=== PATIENT | female | born 1960 | race Caucasian/White ===

== ENCOUNTER 2019-10-27 15:51 | Emergency (ER) | payer BC ==
[2019-10-27 16:15] VITALS: BP 153/114; PULSE 83
[2019-10-27] MEDS ORDERED: HYDROmorphone 1 MG/ML Syringe IVPUSH ONE (16:41)
--- NOTE | 2019-10-27 16:42 | EDM.PDOC ---
ED HPI GENERAL MEDICAL PROBLEM - General Chief Complaint: Skin Complaint Stated Complaint: MOUTH SORES (SKIN CANCER) Time Seen by Provider: 10/27/19 16:12 Source of Information: Reports: Patient, RN Notes Reviewed - History of Present Illness INITIAL COMMENTS - FREE TEXT/NARRATIVE: 59 yr old female with severe upper and lower mouth pain. She was given topical medication to treat "cancer of her face" above upper lip by her [facility] Chemist. She started this about 9 or 10 days ago as prescribed. She believes some of this must have come in contact with mucosa upper and lower mouth. She developed painful vesiculation upper and lower moutha few days later that continues. She stopped the prescribed medication a few days ago. Mouth pain has continue to get worse, nothing she is using or trying at home has given much relief. No other area of rash, pain or vesiculation. Bilateral Lip Pain Score (Numeric/FACES): 8 - Related Data Allergies Allergy/AdvReac Type Severity Reaction Status Date / Time sulfanilamide [Sulfanilamide] Allergy Mild Hives Verified 10/27/19 16:14 Home Meds: Home Meds HCTZ/Triamterene [Maxzide 25-37.5 MG] 1 tab PO DAILY 02/08/15 [History] Levothyroxine Sodium 75 mcg PO DAILY 02/08/15 [History] NIFEdipine [Procardia XL] 30 mg PO DAILY 02/08/15 [History] Potassium Chloride 1 tab PO DAILY 02/08/15 [History] Venlafaxine [Effexor] 150 mg PO DAILY 02/08/15 [History] Imiquimod [Aldara 5% Crm] 1 applic TOP BEDTIME 10/27/19 [History] Past Medical History Cardiovascular History: Reports: Hypertension Musculoskeletal History: Reports: Back Pain, Chronic, Fracture, RA, Other (See Below) Other Musculoskeletal History: scoliosis Endocrine/Metabolic History: Reports: Hypothyroidism Oncologic (Cancer) History: Reports: Squamous Cell Carcinoma - Past Surgical History HEENT Surgical History: Reports: Oral Surgery GI Surgical History: Reports: Colon Female Surgical History: Reports: Section, Hysterectomy Neurological Surgical History: Reports: Scoliosis Musculoskeletal Surgical History: Reports: Knee Replacement Social & Family History - Tobacco Use Smoking Status *Q: Never Smoker Second Hand Smoke Exposure: No - Caffeine Use Caffeine Use: Reports: Coffee - Recreational Drug Use Recreational Drug Use: No ED ROS GENERAL - Review of Systems Review Of Systems: See Below Constitutional: Denies: Fever, Chills HEENT: Reports: Other (severe mouth pain) Respiratory: Reports: No Symptoms Cardiovascular: Reports: No Symptoms GI/Abdominal: Denies: Abdominal Pain, Nausea, Vomiting Skin: Denies: Rash Neurological: Reports: No Symptoms ED EXAM, SKIN/RASH Exam: See Below General Appearance: Alert, Moderate Distress Throat/Mouth: Other (extensive vesicultion along mucosal border upper and lower mouth, no intraoral lesions) Head: Other (area of mild swelling and inflamation above upper mid mouth, face other mayer clear) Respiratory/Chest: No Respiratory Distress, Lungs Clear Cardiovascular: Regular Rate, Rhythm Extremities: Normal Inspection, Normal Range of Motion Neurological: Alert, Oriented, No Motor/Sensory Deficits Skin: Warm, Dry, No Rash ( ) Course - Vital Signs Last Recorded V/S: Last Vital Signs Temp 97.4 F 10/27/19 16:10 Pulse 83 10/27/19 16:10 Resp 16 10/27/19 16:10 BP 153/114 H 10/27/19 16:10 Pulse Ox 96 10/27/19 16:10 - Orders/Labs/Meds Meds: Medications Discontinued Medications Generic Name Dose Route Start Last Admin Trade Name Freq PRN Reason Stop Dose Admin Hydromorphone HCl 1 mg 10/27/19 16:51 10/27/19 16:45 Dilaudid IM 10/27/19 16:52 1 mg ONETIME STA Administration Lidocaine HCl 10 ml 10/27/19 17:03 10/27/19 17:10 Xylocaine 2% Jelly MUCMEM 10/27/19 17:04 10 ml ONETIME ONE Administration Departure - Departure Time of Disposition: 16:58 Disposition: Home, Self-Care 01 Clinical Impression: Acute pain of mouth - Discharge Information Instructions: Oral Ulcers Referrals: Claire Szymanski PA-C [Primary Care Provider] - Forms: ED Department Discharge Additional Instructions: You have been given dilaudid 1 mg IM while here in the ED. Do not drive today due to sedative effect. Percocet 1 tab q 6 to 8 hr if needed for severe pain. Viscous lidocaine to area of mouth vesiculation and pain q 4 to 6 hr as needed. Call or see your Dermatogist if this is not healing as expected over the next few days. Sepsis Event Note - Evaluation Sepsis Screening Result: No Definite Risk - Focused Exam Vital Signs: Vital Signs Temp Pulse Resp BP Pulse Ox 10/27/19 16:10 97.4 F 83 16 153/114 H 96 Date Exam was Performed: 10/27/19 Time Exam was Performed: 20:18
[2019-10-27] MEDS ORDERED: HYDROmorphone 1 MG/ML Syringe IM STA (16:51)
[2019-10-27] MEDS ORDERED: Lidocaine 2% Jelly 10 ML Urojet MUCMEM ONE (17:03)
== END 2019-10-27 17:10 | disposition home or self-care (01) ==
LOC: JD.ED 15:51
DX: K13.79 Other lesions of oral mucosa (principal); I10 Essential (primary) hypertension; E03.9 Hypothyroidism, unspecified; Z88.2 Allergy status to sulfonamides; Z79.899 Other long term (current) drug therapy
CPT/HCPCS: 96374; 99283; J1170

== ENCOUNTER 2019-12-13 22:32 | Emergency (ER) | payer BC, OTHER ==
[2019-12-13 22:47] VITALS: BP 154/93; PULSE 105
[2019-12-13] MEDS ORDERED: Ondansetron 4 MG/2 ML SDV IVPUSH ONE (23:05)
[2019-12-13] MEDS ORDERED: HYDROmorphone 0.5 MG/0.5 ML Syringe IVPUSH ONE (23:05)
--- NOTE | 2019-12-13 23:10 | EDM.PDOC ---
ED HPI GENERAL MEDICAL PROBLEM - General Chief Complaint: Lower Extremity Injury/Pain Stated Complaint: hip pain right side Time Seen by Provider: 12/13/19 22:55 Source of Information: Reports: Patient, Family History Limitations: Reports: No Limitations - History of Present Illness INITIAL COMMENTS - FREE TEXT/NARRATIVE: This is a 59-year-old female. On December 02 she had a bone taken from her right iliac crest and placed into the oral cavity. She was told that she would be kind and numb in that area and sore in that area where they took the bone graft. She was walking around today doing some family activities but nothing strenuous when she had sudden onset of severe pain at the incisional site and a large bulge. This is not gotten any better. Any movement causes severe pain. She did not have any nausea and vomiting she denies any fever or chills. She comes to the ER for evaluation. - Related Data Allergies Allergy/AdvReac Type Severity Reaction Status Date / Time sulfanilamide [Sulfanilamide] Allergy Severe Hives Verified 12/13/19 22:47 Home Meds: Home Meds HCTZ/Triamterene [Maxzide 25-37.5 MG] 1 tab PO DAILY 02/08/15 [History] Levothyroxine Sodium 75 mcg PO DAILY 02/08/15 [History] NIFEdipine [Procardia XL] 30 mg PO DAILY 02/08/15 [History] Potassium Chloride 1 tab PO DAILY 02/08/15 [History] Venlafaxine [Effexor] 150 mg PO DAILY 02/08/15 [History] Imiquimod [Aldara 5% Crm] 1 applic TOP BEDTIME 10/27/19 [History] ALPRAZolam [Alprazolam ODT] 0.5 mg PO DAILY 12/13/19 [History] Hydrocodone/Acetaminophen [Hydrocodone-Acetamin 10-325 mg] 1 tab PO DAILY 12/13/19 [History] Ketorolac [Toradol] 10 mg PO DAILY 12/13/19 [History] cephALEXin [Cephalexin] 500 mg PO DAILY 12/13/19 [History] Past Medical History Cardiovascular History: Reports: Heart Murmur, Hypertension Respiratory History: Reports: Pneumonia, Recurrent Musculoskeletal History: Reports: Back Pain, Chronic, Fracture, RA, Other (See Below) Other Musculoskeletal History: scoliosis Endocrine/Metabolic History: Reports: Hypothyroidism Oncologic (Cancer) History: Reports: Squamous Cell Carcinoma - Past Surgical History HEENT Surgical History: Reports: Oral Surgery Other HEENT Surgeries/Procedures: 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 GI Surgical History: Reports: Colon Female Surgical History: Reports: Section, Hysterectomy Neurological Surgical History: Reports: Scoliosis Musculoskeletal Surgical History: Reports: Knee Replacement Social & Family History - Family History Family Medical History: Noncontributory - Tobacco Use Smoking Status *Q: Never Smoker - Caffeine Use Caffeine Use: Reports: Coffee Review of Systems - Review of Systems Review Of Systems: See Below Constitutional: Denies: Chills, Fever Eyes: Reports: No Symptoms Ears: Reports: No Symptoms Nose: Reports: No Symptoms Mouth/Throat: Reports: Other (Recent surgery) Respiratory: Denies: Shortness of Breath, Cough Cardiovascular: Reports: No Symptoms GI/Abdominal: Reports: Abdominal Pain, Other (That is post removal of bone from right iliac crest) Genitourinary: Reports: No Symptoms Musculoskeletal: Reports: No Symptoms Skin: Reports: No Symptoms Neurological: Reports: No Symptoms Psychiatric: Reports: No Symptoms ED EXAM, GENERAL - Physical Exam Exam: See Below Exam Limited By: No Limitations General Appearance: Alert, WD/WN, Mild Distress Eye Exam: Bilateral Eye: Normal Inspection Ears: Normal External Exam Nose: Normal Inspection Throat/Mouth: Normal Lips, Normal Voice, No Airway Compromise, Other (Status post surgery) Head: Normocephalic Neck: Supple Respiratory/Chest: No Respiratory Distress GI/Abdominal: Soft, Other (The incision site there is a large underlying bulge that is very tender on palpation, there is no drainage there is no redness there is no warmth noted, it looks like a hernia developing at the incisional site, with gentle palpation and then with some pressure to try to reduce it I was unable reduce it secondary to the pain ) Back Exam: Full Range of Motion Extremities: Normal Inspection, Normal Range of Motion Neurological: Alert, Oriented, Other (Does have a patch of numbness around the incision site and the anterior thigh on the right) Psychiatric: Anxious Skin Exam: Warm, Dry Course - Vital Signs Last Recorded V/S: Last Vital Signs Temp 98.0 F 12/13/19 22:42 Pulse 105 H 12/13/19 22:42 Resp 20 12/13/19 22:42 BP 154/93 H 12/13/19 22:42 Pulse Ox 99 12/13/19 22:42 - Orders/Labs/Meds Orders: Active Orders 24 hr Category Date Time Status Abdomen Ltd [US] Stat Exams 12/14/19 00:58 Taken Pelvis wo Cont [CT] Stat Exams 12/13/19 23:02 Taken Labs: Laboratory Tests 12/13/19 Range/Units 23:29 WBC 9.31 (3.98-10.04) K/mm3 RBC 4.13 (3.98-5.22) M/mm3 Hgb 12.5 (11.2-15.7) gm/dl Hct 37.9 (34.1-44.9) % MCV 91.8 (79.4-94.8) fl MCH 30.3 (25.6-32.2) pg MCHC 33.0 (32.2-35.5) g/dl RDW Std Deviation 43.6 (36.4-46.3) fL Plt Count 414 H (182-369) K/mm3 MPV 9.6 (9.4-12.3) fl Neut % (Auto) 63.8 (34.0-71.1) % Lymph % (Auto) 24.8 (19.3-51.7) % [place] % (Auto) 8.3 (4.7-12.5) % Eos % (Auto) 2.4 (0.7-5.8) Baso % (Auto) 0.4 (0.1-1.2) % Neut # (Auto) 5.94 (1.56-6.13) K/mm3 Lymph # (Auto) 2.31 (1.18-3.74) K/mm3 [place] # (Auto) 0.77 H (0.24-0.36) K/mm3 Eos # (Auto) 0.22 (0.04-0.36) K/mm3 Baso # (Auto) 0.04 (0.01-0.08) K/mm3 Meds: Medications Discontinued Medications Generic Name Dose Route Start Last Admin Trade Name Freq PRN Reason Stop Dose Admin Hydromorphone HCl 0.5 mg 12/13/19 23:05 12/13/19 23:13 Dilaudid IVPUSH 12/13/19 23:06 0.5 mg ONETIME ONE Administration Hydromorphone HCl 0.5 mg 06/27/20 01:32 12/14/19 01:38 Dilaudid IVPUSH 12/14/19 01:33 0.5 mg ONETIME ONE Administration Ondansetron HCl 4 mg 12/13/19 23:05 12/13/19 23:12 Zofran IVPUSH 12/13/19 23:06 4 mg ONETIME ONE Administration - Radiology Interpretation Free Text/Narrative:: CT scan of the pelvis area shows an irregular hypodense subcutaneous collection of fluid suspicious for an abscess however it could be a hematoma or seroma. They are wanting a sonogram to delineate this. - Re-Assessments/Exams Free Text/Narrative Re-Assessment/Exam: 12/14/19 02:21 The family is very concerned about this bulge underneath the incision. I reassured them that it was probably a hematoma not a hernia or an abscess but they would like to have a surgeon, take a look at it make sure that is what it is. I did call Dr. Mancuso and he is willing to come into the ER to take a look at it and reassured them regarding its appearance. 12/14/19 02:59 Dr. Mancuso came in and talk to the patient and examined the abdomen. He also spoke to V rad regarding the right iliac crest and its appearance. The radiologist thinks that is in normal bone graft site and that the swollen structure appears to be more like a hematoma. Dr. Mancuso spoke to the patient regarding following up with her surgeon this coming week. Taking the easy at home and keeping ice on it for the next 48 hours. If there is any changes such as redness, fever, drainage to return to the ER Departure - Departure Time of Disposition: 03:00 Disposition: Home, Self-Care 01 Condition: Fair Clinical Impression: Right lower quadrant pain, Status post bone graft Hematoma of abdominal wall Qualifiers: Encounter type: initial encounter Qualified Code(s): S30.1XXA - Contusion of abdominal wall, initial encounter - Discharge Information *PRESCRIPTION DRUG MONITORING PROGRAM REVIEWED*: Not Applicable *COPY OF PRESCRIPTION DRUG MONITORING REPORT IN PATIENT MARNIE: Not Applicable Referrals: Lacy Tello RELAY TESTER [Primary Care Provider] - Forms: ED Department Discharge Additional Instructions: If there are any worsening symptoms such as increased redness, swelling, drainage, fever return to the ER over the weekend, otherwise no strenuous activity and limited walking, keep ice to that hematoma on and off for the next 48 hours, after 48 hours you may start using some heat, follow-up with your surgeon with at least a call phone call on Monday regarding the appearance of that incision site, return to the ER if needed Sepsis Event Note (ED) - Evaluation Sepsis Screening Result: No Definite Risk - Focused Exam Vital Signs: Vital Signs Temp Pulse Resp BP Pulse Ox 12/13/19 22:42 98.0 F 105 H 20 154/93 H 99 - My Orders Last 24 Hours: My Active Orders 12/13/19 23:02 Pelvis wo Cont [CT] Stat 12/14/19 00:58 Abdomen Ltd [US] Stat - Assessment/Plan Last 24 Hours: My Active Orders 12/13/19 23:02 Pelvis wo Cont [CT] Stat 12/14/19 00:58 Abdomen Ltd [US] Stat
[2019-12-14] MEDS ORDERED: HYDROmorphone 0.5 MG/0.5 ML Syringe IVPUSH ONE (01:32)
--- NOTE | 2019-12-14 12:44 | PCM.CONS ---
H&P History of Present Illness - General Date of Service: 12/14/19 Admit Problem/Dx: right hip hematoma Source of Information: Patient, Family History Limitations: Reports: No Limitations - History of Present Illness Initial Comments - Free Text/Narative: Mrs. Abbott is a 59 yo woman presenting with RLQ pain and swelling. She underwent palate reconstruction with use of bone autograft from the right iliac crest about one week ago. She had been doing well until yesterday, without any inciting trauma, she developed severe pain and swelling beneath her incision at the RLQ. Her lab work is unremarkable in the ER, and CT and US imaging show a fluid collection beneath the incision consistent with hematoma and a displaced fracture of the right iliac wing. She has been taking oral ketorolac, 30 mg/d, the past few days for post- operative pain. - Related Data Allergies/Adverse Reactions: Allergies Allergy/AdvReac Type Severity Reaction Status Date / Time sulfanilamide [Sulfanilamide] Allergy Severe Hives Verified 12/13/19 22:47 Home Medications: Home Meds HCTZ/Triamterene [Maxzide 25-37.5 MG] 1 tab PO DAILY 02/08/15 [History] Levothyroxine Sodium 75 mcg PO DAILY 02/08/15 [History] NIFEdipine [Procardia XL] 30 mg PO DAILY 02/08/15 [History] Potassium Chloride 1 tab PO DAILY 02/08/15 [History] Venlafaxine [Effexor] 150 mg PO DAILY 02/08/15 [History] Imiquimod [Aldara 5% Crm] 1 applic TOP BEDTIME 10/27/19 [History] ALPRAZolam [Alprazolam ODT] 0.5 mg PO DAILY 12/13/19 [History] Hydrocodone/Acetaminophen [Hydrocodone-Acetamin 10-325 mg] 1 tab PO DAILY 12/13/19 [History] Ketorolac [Toradol] 10 mg PO DAILY 12/13/19 [History] cephALEXin [Cephalexin] 500 mg PO DAILY 12/13/19 [History] Past Medical History Cardiovascular History: Reports: Heart Murmur, Hypertension Respiratory History: Reports: Pneumonia, Recurrent Musculoskeletal History: Reports: Back Pain, Chronic, Fracture, RA, Other (See Below) Other Musculoskeletal History: scoliosis Endocrine/Metabolic History: Reports: Hypothyroidism Oncologic (Cancer) History: Reports: Squamous Cell Carcinoma - Past Surgical History HEENT Surgical History: Reports: Oral Surgery Other HEENT Surgeries/Procedures: 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 GI Surgical History: Reports: Colon Female Surgical History: Reports: Section, Hysterectomy Neurological Surgical History: Reports: Scoliosis Musculoskeletal Surgical History: Reports: Knee Replacement Social & Family History - Family History Family Medical History: Noncontributory - Tobacco Use Smoking Status *Q: Never Smoker - Caffeine Use Caffeine Use: Reports: Coffee H&P Review of Systems - Review of Systems: Review Of Systems: See Below General: Reports: No Symptoms Gastrointestinal: Reports: Abdominal Pain Exam - Exam Exam: See Below - Vital Signs Vital Signs: Last Vital Signs Temp 36.7 C 12/13/19 22:42 Pulse 105 H 12/13/19 22:42 Resp 20 12/13/19 22:42 BP 154/93 H 12/13/19 22:42 Pulse Ox 99 12/13/19 22:42 Weight: 68.039 kg - Exam General: Alert, Oriented, Mild Distress HEENT: Conjunctiva Clear Neck: Supple Lungs: Normal Respiratory Effort Cardiovascular: Regular Rate GI/Abdominal Exam: Soft, Other (RLQ curvilinear incision medial to the right iliac crest with steristrips in place. Swelling and tenderness beneath incision. No drainage from wound. No surrounding erythema. ) Extremities: Normal Inspection Skin: Warm Psychiatric: Normal Mood - Patient Data Lab Results Last 24 hrs: Laboratory Results - last 24 hr 12/13/19 Range/Units 23:29 WBC 9.31 (3.98-10.04) K/mm3 RBC 4.13 (3.98-5.22) M/mm3 Hgb 12.5 (11.2-15.7) gm/dl Hct 37.9 (34.1-44.9) % MCV 91.8 (79.4-94.8) fl MCH 30.3 (25.6-32.2) pg MCHC 33.0 (32.2-35.5) g/dl RDW Std Deviation 43.6 (36.4-46.3) fL Plt Count 414 H (182-369) K/mm3 MPV 9.6 (9.4-12.3) fl Neut % (Auto) 63.8 (34.0-71.1) % Lymph % (Auto) 24.8 (19.3-51.7) % [place] % (Auto) 8.3 (4.7-12.5) % Eos % (Auto) 2.4 (0.7-5.8) Baso % (Auto) 0.4 (0.1-1.2) % Neut # (Auto) 5.94 (1.56-6.13) K/mm3 Lymph # (Auto) 2.31 (1.18-3.74) K/mm3 [place] # (Auto) 0.77 H (0.24-0.36) K/mm3 Eos # (Auto) 0.22 (0.04-0.36) K/mm3 Baso # (Auto) 0.04 (0.01-0.08) K/mm3 Result Diagrams: 12/13/19 23:29 Sepsis Event Note - Evaluation Sepsis Screening Result: No Definite Risk - Focused Exam Date Exam was Performed: 12/14/19 Time Exam was Performed: 12:39 Consult PN Assessment/Plan Procedures: Procedures ANTINUCLEAR ANTIBODIES (07/31/18) ASSAY OF CK (CPK) (07/31/18) ASSAY OF FERRITIN (09/19/19) ASSAY OF FREE THYROXINE (06/18/18) ASSAY OF LIPASE (02/08/15) ASSAY OF MAGNESIUM (07/31/18) ASSAY OF NATRIURETIC PEPTIDE (09/19/19) ASSAY OF SERUM POTASSIUM (07/01/16) ASSAY THYROID STIM HORMONE (06/14/19) ASSAY TRIIODOTHYRONINE (T3) (01/05/16) BL SMEAR W/DIFF WBC COUNT (09/19/19) BREAST TOMOSYNTHESIS BI (04/18/19) C-REACTIVE PROTEIN (09/19/19) CARDIOVASCULAR STRESS TEST (03/28/18) CCP ANTIBODY (11/07/18) CHEST X-RAY 2VW FRONTAL&LATL (06/28/16) CHYLMD PNEUM DNA AMP PROBE (04/22/19) COMP SCREEN MAMMOGRAM ADD-ON (08/24/15) COMPLETE CBC AUTOMATED (11/12/19) COMPLETE CBC W/AUTO DIFF WBC (04/22/19) COMPREHEN METABOLIC PANEL (11/12/19) CT ABD & PELV W/CONTRAST (02/08/15) CT HEAD/BRAIN W/O DYE (11/16/15) CT LUMBAR SPINE W/O DYE (02/08/15) CT NECK SPINE W/O DYE (11/16/15) CULTURE SCREEN ONLY (09/19/19) DETECT AGENT NOS DNA AMP (04/22/19) ECHO EXAM OF ABDOMEN (01/01/19) EMERGENCY DEPT VISIT (10/27/19) EMERGENCY DEPT VISIT (11/16/15) EMERGENCY DEPT VISIT (02/08/15) FREE ASSAY (FT-3) (06/18/18) HT MUSCLE IMAGE SPECT MULT (03/28/18) HYDRATE IV INFUSION ADD-ON (02/08/15) INFLUENZA ASSAY W/OPTIC (09/19/19) LACTATE (LD) (LDH) ENZYME (09/19/19) LIPID PANEL (06/14/19) M.PNEUMON DNA AMP PROBE (04/22/19) MRI BRAIN STEM W/O & W/DYE (03/30/18) MRI CHEST SPINE W/O DYE (11/07/18) MRI LUMBAR SPINE W/O DYE (12/08/17) MYCOPLASMA ANTIBODY (09/19/19) PROTHROMBIN TIME (03/02/17) RBC SED RATE AUTOMATED (01/05/16) RESP VIRUS 6-11 TARGETS (04/22/19) RHEUMATOID FACTOR TEST QUAL (07/31/18) ROUTINE VENIPUNCTURE (11/12/19) RSV ASSAY W/OPTIC (09/19/19) SARS-COV2 COVID-19 AMP PRB (09/19/19) SCR MAMMO BI INCL CAD (04/18/19) SMEAR WET [place] SALINE/INK (03/22/18) STREP A AG IA (09/19/19) THER/PROPH/DIAG INJ IV PUSH (10/27/19) THROMBOPLASTIN TIME PARTIAL (03/02/17) TRICHOMONAS ASSAY W/OPTIC (03/22/18) TTE W/DOPPLER COMPLETE (04/03/18) TX/PRO/DX INJ NEW DRUG ADDON (02/08/15) TX/PRO/DX INJ SAME DRUG [employer] SUPER[employer]OR (02/08/15) URINALYSIS AUTO W/O SCOPE (11/12/19) URINALYSIS AUTO W/SCOPE (11/07/18) VIT D 1 25-DIHYDROXY (09/02/15) VITAMIN B-12 (12/31/18) VITAMIN D 25 HYDROXY (03/22/18) X-RAY EXAM CHEST 2 VIEWS (09/19/19) X-RAY EXAM OF FOOT (12/06/16) X-RAY EXAM OF KNEE 3 (09/12/17) X-RAY EXAM OF SHOULDER (02/08/15) Problem List Initiated/Reviewed/Updated: Yes Plan: Clinical findings are more consistent with post-operative hematoma than abscess. CT scan shows was appears to be a hematoma associated with the site of recent bone harvesting at the right iliac wing for palate reconstruction. There appears to be a grossly displaced fracture of the iliac wing, although after discussion with the initial interpreting radiologist from [facility], this is a concordant finding with relevant recent surgical history. I do not think incision and drainage is appropriate as this does not appear to be an abscess. Given her degree of pain and the findings on CT, I recommend symptomatic management over the weekend with plan for follow up with her surgeon in [place] Monday morning. If her symptoms are not manageable with analgesics at home, I recommend going to the emergency room in [place] where she can see her surgeon or at least have consultation with orthopedic surgery.
--- NOTE | 2019-12-16 10:18 | CT ---
CT pelvis Technique: Multiple axial sections were obtained from above the iliac crests inferiorly through the pubic symphysis. Intravenous contrast and oral contrast not utilized. Comparison: Prior CT abdomen and pelvis study of 02/09/15. Findings: Unfused bone noted off the right iliac wing anteriorly. This presumably is post surgical. Soft tissue finding is seen within the subcutaneous fat and adjacent muscle next to this area which has Hounsfield unit measurements of fluid. Small amount of air is noted. This finding measures approximately 5.1 x 4.1 cm. Uncertain if this finding is due to hematoma with air being postsurgical or whether findings could represent abscess. Bladder slightly dilated with urine. Anastomotic sutures are noted at the rectosigmoid junction. Degenerative apophyseal change is noted within the lower lumbar spine. No additional abnormality is appreciated. Impression: 1. Unfused bone within the anterior right iliac wing presumably postsurgical. 2. Soft tissue abnormality within the subcutaneous fat and muscle in the area of presumed bone surgery. Differential as described above. 3. Other findings believed to be incidental. Diagnostic code #3 This report was dictated in MDT I agree with preliminary report from [facility], finalized on 12/14/19, 1:49 AM [place] Daylight Time
--- NOTE | 2019-12-16 10:18 | US ---
Limited abdominal ultrasound: Multiple real-time images were obtained of the right lower quadrant within the abdominal wall. Mixed hypoechoic and hyperechoic abnormality noted within the left lower abdominal wall in area of previous surgery measuring 5.9 x 3.1 x 4.1 cm. This finding could represent either developing abscess or more likely represents a hematoma with mixed solid and cystic components. Impression: 1. Finding within the right lower abdominal wall as described above. Diagnostic code #3 This report was dictated in MDT I agree with preliminary report from [employer], finalized on 12/14/19, 3:01 AM [place] Daylight Time
== END 2019-12-14 03:20 | disposition home or self-care (01) ==
LOC: JD.ED 22:32
DX: M96.840 Postprocedural hematoma of a musculoskeletal structure following a musculoskeletal system procedure (principal); R10.31 Right lower quadrant pain; I10 Essential (primary) hypertension; E03.9 Hypothyroidism, unspecified; Z94.6 Bone transplant status; Z79.899 Other long term (current) drug therapy; Z88.2 Allergy status to sulfonamides; Z98.890 Other specified postprocedural states; Z90.710 Acquired absence of both cervix and uterus
CPT/HCPCS: 36415; 72192; 76705; 85025; 96374; 96375; 96376; 99284; J1170; J2405; 99283

== ENCOUNTER 2020-05-31 20:15 | Emergency (ER) | payer BC ==
[2020-05-31 20:28] VITALS: BP 128/83; PULSE 87
[2020-05-31] MEDS ORDERED: Metoclopramide 10 MG/2 ML SDV IM ONE (20:39)
[2020-05-31] MEDS ORDERED: Ketorolac 30 MG/ML SDV IM ONE (20:39)
--- NOTE | 2020-05-31 20:48 | EDM.PDOC ---
ED HPI GENERAL MEDICAL PROBLEM - General Chief Complaint: Head Injury Stated Complaint: RIGHT HAND AND HEAD INJURY FROM FALL Time Seen by Provider: 05/31/20 20:25 Source of Information: Reports: Patient, RN Notes Reviewed History Limitations: Reports: No Limitations - History of Present Illness INITIAL COMMENTS - FREE TEXT/NARRATIVE: Patient is a 60-year-old female who presents to the ED for the evaluation of her right hand and head injury. Patient notes that she was at home, missed a stair, she fell forward bracing herself with her right hand/arm, and ended up striking her face on a railroad tie. She notes that she did not lose consciousness, and she got up right away but felt somewhat dizzy and nauseous. She is complaining of a headache at today's visit, and some pain mostly in her right proximal hand/thumb area. Patient notes she was not dizzy or weak prior to the fall. She does have a history of having weak legs, she had a EMG done along with an MRI and there seem to be no focal abnormalities appreciated with that respect. Her primary care provider is Lina Tello. Patient denies any fevers or chills, cough or shortness of breath, or any other vomiting or diarrhea. Right Head Pain Score (Numeric/FACES): 9 - Related Data Allergies Allergy/AdvReac Type Severity Reaction Status Date / Time sulfanilamide [Sulfanilamide] Allergy Severe Hives Verified 05/31/20 20:28 Home Meds: Home Meds HCTZ/Triamterene [Maxzide 25-37.5 MG] 1 tab PO DAILY 02/08/15 [History] Levothyroxine Sodium 75 mcg PO DAILY 02/08/15 [History] NIFEdipine [Procardia XL] 30 mg PO DAILY 02/08/15 [History] Potassium Chloride 1 tab PO DAILY 02/08/15 [History] Venlafaxine [Effexor] 150 mg PO DAILY 02/08/15 [History] Imiquimod [Aldara 5% Crm] 1 applic TOP BEDTIME 10/27/19 [History] ALPRAZolam [Alprazolam ODT] 0.5 mg PO DAILY 12/13/19 [History] Hydrocodone/Acetaminophen [Hydrocodone-Acetamin 10-325 mg] 1 tab PO DAILY 12/13/19 [History] Ketorolac [Toradol] 10 mg PO DAILY 12/13/19 [History] cephALEXin [Cephalexin] 500 mg PO DAILY 12/13/19 [History] DULoxetine [Cymbalta] 05/31/20 [History] Gabapentin [Neurontin] 3,200 mg PO BID 05/31/20 [History] Past Medical History Cardiovascular History: Reports: Heart Murmur, Hypertension Respiratory History: Reports: Pneumonia, Recurrent Musculoskeletal History: Reports: Back Pain, Chronic, Fracture, RA, Other (See Below) Other Musculoskeletal History: scoliosis Endocrine/Metabolic History: Reports: Hypothyroidism Oncologic (Cancer) History: Reports: Squamous Cell Carcinoma - Past Surgical History HEENT Surgical History: Reports: Oral Surgery Other HEENT Surgeries/Procedures: 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 GI Surgical History: Reports: Colon Female Surgical History: Reports: Section, Hysterectomy Neurological Surgical History: Reports: Scoliosis Musculoskeletal Surgical History: Reports: Knee Replacement Social & Family History - Family History Family Medical History: No Pertinent Family History - Caffeine Use Caffeine Use: Reports: Coffee ED ROS GENERAL - Review of Systems Review Of Systems: Comprehensive ROS is negative, except as noted in HPI. ED EXAM, HEAD INJURY - Physical Exam Exam: See Below Exam Limited By: No Limitations General Appearance: Alert, WD/WN, No Apparent Distress Head: Atraumatic, Normocephalic Nexus Criteria: No: Posterior, Midline Cervical Tenderness, Evidence of Intoxication, Altered Level of Consciousness, Focal Neurological Deficit, Painful Distraction Injuries Eyes: Bilateral Eye: EOMI, Normal Inspection, PERRL Nose: Normal Inspection, Normal Mucousa, No Blood Throat/Mouth: Normal Inspection, Normal Lips, Normal Teeth, Normal Gums, Normal Oropharynx, Normal Voice, No Airway Compromise Neck: Non-Tender, Full Range of Motion, Normal Alignment, Normal Inspection Respiratory: No Respiratory Distress, Lungs Clear, Normal Breath Sounds, No Accessory Muscle Use, Chest Non-Tender Cardiovascular: Normal Peripheral Pulses, Regular Rate, Rhythm Extremities: Normal Capillary Refill, Limited Range of Motion (of right hand/wrist d/t pain, there is bruising present to the right anterior proximal hand with mild swelling also appreciated.) Neurologic: No Motor/Sensory Deficits, Alert, Normal Mood/Affect, Oriented x 3 Skin: Normal Color, Warm/Dry - [place] Coma Score Best Eye Response (Gus): (4) Open Spontaneously Best Verbal Response ([place]): (5) Oriented Best Motor Response ([place]): (6) Obeys Commands [place] Total: 15 ED LACERATION/WOUND & JOSH PROC - Splinting Right Upper Extremity Splint Site: right wrist Pre-procedure NV status: Normal Post-procedure NV status: Normal Splint Material: Velcro (pre-eron from [facility] clost) Splint Design: Other (pre fabricated velcro cock up splint from [facility] closet) Applied & Form Fitted By: Nurse Provider Post-Splint Application NV Check: NV Status Normal, Good Position Course - Vital Signs Last Recorded V/S: Last Vital Signs Temp 96.6 F L 05/31/20 20:24 Pulse 87 05/31/20 20:24 Resp 18 05/31/20 20:24 BP 128/83 05/31/20 20:24 Pulse Ox 95 05/31/20 20:24 - Orders/Labs/Meds Orders: Active Orders 24 hr Category Date Time Status Hand Comp Min 3V Rt [CR] Stat Exams 05/31/20 20:38 Ordered DME for Discharge [COMM] Routine Oth 05/31/20 21:07 Ordered Meds: Medications Discontinued Medications Generic Name Dose Route Start Last Admin Trade Name Freq PRN Reason Stop Dose Admin Ketorolac Tromethamine 30 mg 05/31/20 20:39 Toradol IM 05/31/20 20:40 ONETIME ONE Metoclopramide HCl 10 mg 05/31/20 20:39 Reglan IM 05/31/20 20:40 ONETIME ONE - Re-Assessments/Exams Free Text/Narrative Re-Assessment/Exam: 05/31/20 20:48 Patient presents to the ED for the evaluation of her headache and wrist pain. We will get x-rays to make sure she did not break her wrist or hand bones. We will get the patient a shot of Toradol and a shot of Reglan for her headache. 05/31/20 21:09 Patient's x-ray demonstrates no acute fractures. Dr. Galarza appreciated possible raised periosteum in the area of her pain, he theorized that she could have likely broken a vessel causing pain and this abnormality. We will place the patient in a cock-up prefabricated splint from the [facility] closet and get her discharged home with general recommendations. Departure - Departure Time of Disposition: 21:09 Disposition: Home, Self-Care 01 Condition: Good Clinical Impression: Right wrist pain Head injury Qualifiers: Encounter type: initial encounter Qualified Code(s): S09.90XA - Unspecified injury of head, initial encounter - Discharge Information *PRESCRIPTION DRUG MONITORING PROGRAM REVIEWED*: No *COPY OF PRESCRIPTION DRUG MONITORING REPORT IN PATIENT MARNIE: No Instructions: Wrist Pain, Adult, [id number] Referrals: Claire Szymanski PA-C [Primary Care Provider] - Forms: ED Department Discharge Additional Instructions: You have been evaluated in the ED for your head injury and right wrist injury. Your x-ray demonstrated no acute fractures of your right wrist or other bony abnormalities of your right wrist. You have been fitted with a splint, to help immobilize the area to provide further pain relief. I would recommend that you have the wrist reexamined in a few days time, to make sure that your symptoms are getting better as expected. This re-evaluation may be provided by your primary care provider. Please use ice as tolerated to the affected area. Please try to elevate the affected area to relieve swelling. You may take Tylenol 500 mg or ibuprofen 600mg q6 hrs for pain relief. Please do so until you have a tolerable level of pain with activity. Do not exceed 4000mg Tylenol or 3200mg ibuprofen in a 24 hour time period. Please return to ED if your symptoms should change or worsen. Sepsis Event Note (ED) - Evaluation Sepsis Screening Result: No Definite Risk - Focused Exam Vital Signs: Vital Signs Temp Pulse Resp BP Pulse Ox 05/31/20 20:24 96.6 F L 87 18 128/83 95 - My Orders Last 24 Hours: My Active Orders 05/31/20 20:38 Hand Comp Min 3V Rt [CR] Stat 05/31/20 21:07 DME for Discharge [COMM] Routine - Assessment/Plan Last 24 Hours: My Active Orders 05/31/20 20:38 Hand Comp Min 3V Rt [CR] Stat 05/31/20 21:07 DME for Discharge [COMM] Routine
--- NOTE | 2020-06-01 08:10 | CR ---
Right hand: 3 views of the right hand were obtained. Mild joint space narrowing is noted within portions of the MCP, DIP and PIP joints. Joint space narrowing and is noted within the CMC joint of the thumb as well as off the distal navicular bone. Several bony densities are also noted off the CMC joint of the thumb most likely relating to degenerative change. No definite fracture or dislocation is seen. Impression: 1. 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 2. Nothing acute is definitely appreciated. 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
== END 2020-05-31 21:40 | disposition home or self-care (01) ==
LOC: JD.ED 20:15
DX: S09.90XA Unspecified injury of head, initial encounter (principal); S60.221A Contusion of right hand, initial encounter; M25.531 Pain in right wrist; I10 Essential (primary) hypertension; E03.9 Hypothyroidism, unspecified; Z88.2 Allergy status to sulfonamides; Z79.899 Other long term (current) drug therapy; W10.9XXA Fall (on) (from) unspecified stairs and steps, initial encounter; Y92.009 Unspecified place in unspecified non-institutional (private) residence as the place of occurrence of the external cause
CPT/HCPCS: 73130; 96372; 99283; J1885; J2765

== ENCOUNTER 2021-09-02 22:42 | Inpatient (IN) | payer BC ==
[2021-09-02] MEDS ORDERED: Sodium Chloride 0.9% 1,000 ML IV ONE (23:24)
[2021-09-02] MEDS ORDERED: Loperamide 2 MG Cap PO STA (23:40)
[2021-09-02] MEDS ORDERED: Ondansetron 4 MG/2 ML SDV IVPUSH ONE (23:40)
[2021-09-03 00:25] LABS: CORONAVIRUS COVID-19 NAA NEGATIVE (NEGATIVE)
[2021-09-03] MEDS ORDERED: Orphenadrine 100 MG Tab.ER PO STA (01:12)
[2021-09-03] MEDS ORDERED: Sodium Chloride 0.9% 1,000 ML IV ONE ×2 (02:42→05:21)
[2021-09-03] MEDS ORDERED: Ondansetron 4 MG Tab.DIS PO ONE (02:58)
[2021-09-03] MEDS ORDERED: Loperamide 2 MG Cap PO STA ×2 (05:15→06:46)
[2021-09-03] MEDS ORDERED: Sodium Chloride 0.9% 1,000 ML IV SCH (07:00)
[2021-09-03] MEDS ORDERED: Acetaminophen 325 MG Tab PO PRN (09:27)
[2021-09-03] MEDS ORDERED: LORazepam 2 MG/ML SDV IV ONE ×2 (09:45→11:30)
[2021-09-03] MEDS ORDERED: Pantoprazole 40 MG Vial IV ONE (10:00)
[2021-09-03] MEDS: Potassium Chloride 10 MEQ in Premix Bag 1 BAG IV SCH ×4 (10:38→16:45)
[2021-09-03] MEDS: Enoxaparin 40 MG/0.4 ML Syringe SUBCUT SCH (10:39)
[2021-09-03] MEDS: Dextrose 5%-0.9% NaCl with KCl 1,000 ML IV SCH ×2 (12:15→20:13)
[2021-09-03] MEDS ORDERED: Gadobenate Dimeglumine 529 MG/ML 15 ML SDV IVPUSH ONE (14:55)
[2021-09-03] MEDS ORDERED: Sodium Chloride 0.9% 10 ML Syringe FLUSH SCH (15:00)
[2021-09-03] MEDS ORDERED: Loperamide 2 MG Cap PO PRN (17:30)
[2021-09-03] MEDS: Ondansetron 4 MG/2 ML SDV IVPUSH SCH (18:02)
[2021-09-04] MEDS: Ondansetron 4 MG/2 ML SDV IVPUSH SCH ×3 (01:20→11:56)
[2021-09-04] MEDS: Dextrose 5%-0.9% NaCl with KCl 1,000 ML IV SCH (03:26)
[2021-09-04] MEDS: Enoxaparin 40 MG/0.4 ML Syringe SUBCUT SCH (09:06)
[2021-09-04] MEDS: Pantoprazole 40 MG Tab.CR PO SCH (09:06)
[2021-09-04] MEDS ORDERED: Potassium Chloride 20 MEQ Tab.ER PO ONE (10:39)
[2021-09-04 10:47] LABS: BORDETELLA PARAPERT IS1001 Not Detected (Not Detected)
[2021-09-04] MEDS ORDERED: Dicyclomine 10 MG Cap PO PRN (14:37)
[2021-09-04] MEDS ORDERED: Lactated Ringers 1,000 ML IV SCH (15:30)
[2021-09-04] MEDS: DULoxetine 30 MG Cap PO SCH (16:48)
[2021-09-04] MEDS ORDERED: Ondansetron 4 MG/2 ML SDV IVPUSH PRN (18:00)
[2021-09-05] MEDS: Enoxaparin 40 MG/0.4 ML Syringe SUBCUT SCH (08:39)
[2021-09-05] MEDS: DULoxetine 30 MG Cap PO SCH (08:39)
[2021-09-05] MEDS: Pantoprazole 40 MG Tab.CR PO SCH (08:39)
[2021-09-05] MEDS ORDERED: Potassium Chloride 20 MEQ Tab.ER PO ONE (10:00)
[2021-09-05 12:36] VITALS: BP 122/76; PULSE 82
== END 2021-09-05 13:52 | disposition home or self-care (01) | DRG 252 ==
LOC: JD.ED 22:42 → JD.MS 09-03 06:44
PROVIDERS: ADMIT Pediatrics; ATTEND Pediatrics
DX: K91.89 Other postprocedural complications and disorders of digestive system (principal); A08.39 Other viral enteritis; K91.31 Postprocedural partial intestinal obstruction; E86.0 Dehydration; E87.6 Hypokalemia; Z20.822 Contact with and (suspected) exposure to COVID-19; I10 Essential (primary) hypertension; K21.9 Gastro-esophageal reflux disease without esophagitis; K44.9 Diaphragmatic hernia without obstruction or gangrene; R32 Unspecified urinary incontinence; F32.A Depression, unspecified; M06.9 Rheumatoid arthritis, unspecified; E03.9 Hypothyroidism, unspecified; D50.9 Iron deficiency anemia, unspecified; Z96.659 Presence of unspecified artificial knee joint; I95.1 Orthostatic hypotension; M54.59 Other low back pain; R42 Dizziness and giddiness; Z86.19 Personal history of other infectious and parasitic diseases; Y83.8 Other surgical procedures as the cause of abnormal reaction of the patient, or of later complication, without mention of misadventure at the time of the procedure; Z86.16 Personal history of COVID-19; Z79.890 Hormone replacement therapy; Z79.899 Other long term (current) drug therapy; Z98.890 Other specified postprocedural states; Z88.2 Allergy status to sulfonamides; Z87.01 Personal history of pneumonia (recurrent); Z90.710 Acquired absence of both cervix and uterus
CPT/HCPCS: 0240U; 36415; 36600; 70553; 70553-26; 74177; 74177-26; 80048; 80053; 82784; 82803; 83516; 83605; 83630; 83735; 85007; 85025; 85027; 85652; 86308; 87045; 87046; 87328; 87329; 87338; 87486; 87493; 87496; 87581; 87633; 87798; 87899; 93005; A9270-GY; A9577; C9113; J1650; J2060; J2405; J3480; J7030; J7120

== ENCOUNTER 2023-06-15 19:18 | Emergency (ER) | payer BC ==
[2023-06-15] MEDS ORDERED: HYDROmorphone 0.5 MG/0.5 ML Syringe IVPUSH ONE ×2 (19:34→21:11)
[2023-06-15] MEDS ORDERED: Ondansetron 4 MG/2 ML SDV IVPUSH ONE (19:42)
[2023-06-15] MEDS: Sodium Chloride 0.9% 10 ML Syringe FLUSH PRN ×2 (19:48→21:23)
[2023-06-15] MEDS ORDERED: Prochlorperazine 10 MG/2 ML SDV IVPUSH ONE (21:13)
[2023-06-15 21:31] VITALS: BP 126/77; PULSE 86
== END 2023-06-15 21:30 | disposition home or self-care (01) ==
LOC: JD.ED 19:18
DX: S52.571A Other intraarticular fracture of lower end of right radius, initial encounter for closed fracture (principal); W00.0XXA Fall on same level due to ice and snow, initial encounter
CPT/HCPCS: 29125; 73080; 73110; 96374; 96375; 96376; 99283; J0780; J1170; J2405; J3490

== ENCOUNTER 2024-07-29 12:07 | Emergency (ER) | payer MEDICARE, OTHER ==
[2024-07-29 14:28] VITALS: BP 124/85; PULSE 124
[2024-07-29] MEDS ORDERED: Sodium Chloride 0.9% 10 ML Syringe FLUSH PRN (14:29)
[2024-07-29 15:31] LABS: HEMATOCRIT 43.9 % (37.0-47.0); HEMOGLOBIN 14.7 gm/dl (12.0-16.0); MEAN CORPUSCULAR HEMOGLOBIN 30.2 pg (28.0-32.0); MEAN CORPUSCULAR HGB CONC 33.5 g/dl (32.0-36.0); MEAN CORPUSCULAR VOLUME 90.3 fl (83.0-99.0); MEAN PLATELET VOLUME 9.4 fl (9.4-12.3); PLATELET COUNT,PLT 220 K/mm3 (150-400); RED BLOOD CELL COUNT 4.86 M/mm3 (4.10-5.30); WHITE BLOOD CELL COUNT,WBC 10.28 K/mm3 (3.9-11.3)
[2024-07-29 16:04] LABS: BAND PERCENT MAN 0 % (0-10); BASOPHILS PERCENT MAN 0 (0.1-1.2); EOSINOPHILS PERCENT MAN 0 % (0.7-5.8); LYMPHOCYTES % ATYPICAL MANUAL 0 %; LYMPHOCYTES PERCENT MAN 5 % (20-40); MONOCYTES PERCENT MAN 4 % (2-10)
[2024-07-29 16:05] LABS: PLATELET COUNT ESTIMATE ADEQUATE; TOXIC GRANULATION FEW
[2024-07-29 16:07] LABS: A/G RATIO 1.1 (1-2); ALBUMIN 3.8 g/dl (3.4-5.0); ANION GAP 12.3 (5-15); BILIRUBIN TOTAL 0.5 mg/dL (0.2-1.0); BUN/CREATININE RATIO 17.5 (14-18); C-REACTIVE PROTEIN 2.47 mg/dL (<0.30); CALCIUM 8.5 mg/dL (8.5-10.1); CREATININE 0.8 mg/dL (0.55-1.02); EST CRCL DRUG DOSING (CG) 61.35 mL/min; POTASSIUM,K 3.3 mEq/L (3.5-5.1); PROTEIN TOTAL,TP 7.2 g/dl (6.4-8.2)
[2024-07-29 16:08] LABS: INR 1.03; PROTHROMBIN TIME 10.9 SECONDS (9.7-12.0)
[2024-07-29 16:09] LABS: LACTIC ACID 0.8 mmol/L (0.4-2.0)
[2024-07-29] MEDS: Albuterol/Ipratropium 3.0-0.5 MG/3 ML Neb Soln NEB ONE (16:43)
[2024-07-29] MEDS: Acetaminophen 325 MG Tab PO ONE (17:08)
== END 2024-07-29 17:27 | disposition home or self-care (01) ==
LOC: JD.ED 12:07
DX: J10.1 Influenza due to other identified influenza virus with other respiratory manifestations (principal); J40 Bronchitis, not specified as acute or chronic; I10 Essential (primary) hypertension; Z88.2 Allergy status to sulfonamides; Z79.890 Hormone replacement therapy; Z79.51 Long term (current) use of inhaled steroids; Z86.16 Personal history of COVID-19
CPT/HCPCS: 36415; 71046; 80053; 83605; 85007; 85027; 85610; 86140; 87040; 87428; 94640; 99285; A9270; J7620-GY

== ENCOUNTER 2024-07-30 15:02 | Emergency (ER) | payer MEDICARE, OTHER ==
[2024-07-30 16:13] LABS: BASOPHILS PERCENT AUTO 0.3 % (0.0-1.0); HEMOGLOBIN 14.7 gm/dl (12.0-16.0); IMMATURE GRAN ABSOLUTE AUTO 0.02 K/mm3 (0.00-0.05); IMMATURE GRAN PERCENT AUTO 0.3 % (0.0-0.4); LYMPHOCYTES ABSOLUTE AUTO 0.4 K/mm3 (1.0-4.8); LYMPHOCYTES PERCENT AUTO 5.8 % (24.0-44.0); MEAN CORPUSCULAR HEMOGLOBIN 30.6 pg (28.0-32.0); MEAN CORPUSCULAR HGB CONC 33.4 g/dl (32.0-36.0); MEAN CORPUSCULAR VOLUME 91.5 fl (83.0-99.0); MEAN PLATELET VOLUME 9.4 fl (9.4-12.3); MONOCYTES ABSOLUTE AUTO 0.3 K/mm3 (0.0-0.8); MONOCYTES PERCENT AUTO 4.5 % (0.0-8.0); NEUTROPHILS ABSOLUTE AUTO 5.8 K/mm3 (1.8-7.7); NEUTROPHILS PERCENT AUTO 89.1 % (41.0-71.0); PLATELET COUNT,PLT 208 K/mm3 (150-400); RED BLOOD CELL COUNT 4.81 M/mm3 (4.10-5.30)
[2024-07-30] MEDS: Lactated Ringers 1,000 ML IV ONE (16:14)
[2024-07-30] MEDS: Albuterol/Ipratropium 3.0-0.5 MG/3 ML Neb Soln NEB ONE (16:18)
[2024-07-30 16:41] LABS: A/G RATIO 1.1 (1-2); ALBUMIN 3.6 g/dl (3.4-5.0); ANION GAP 13.1 (5-15); BILIRUBIN TOTAL 0.3 mg/dL (0.2-1.0); CALCIUM 8.3 mg/dL (8.5-10.1); EST CRCL DRUG DOSING (CG) 49.08 mL/min; POTASSIUM,K 4.1 mEq/L (3.5-5.1)
[2024-07-30 19:23] VITALS: BP 137/86; PULSE 96
== END 2024-07-30 19:16 | disposition home or self-care (01) ==
LOC: JD.ED 15:02
DX: R55 Syncope and collapse (principal); I10 Essential (primary) hypertension; K21.9 Gastro-esophageal reflux disease without esophagitis; E03.9 Hypothyroidism, unspecified; Z86.16 Personal history of COVID-19; Z90.710 Acquired absence of both cervix and uterus; Z88.2 Allergy status to sulfonamides; Z79.890 Hormone replacement therapy; Z79.51 Long term (current) use of inhaled steroids; Z79.899 Other long term (current) drug therapy
CPT/HCPCS: 36415; 80053; 84484; 85025; 93005; 93010; 93246; 94640; 96360; 99284; 99284-25; J7120; J7620-GY

== ENCOUNTER 2024-09-24 07:30 | Inpatient (IN) | payer MEDICARE, OTHER ==
[~2024-09-24 07:30] MED LIST: Sodium Chloride 0.9% 10 ML Syringe FLUSH PRN
[2024-09-24] MEDS: Lactated Ringers 1,000 ML IV SCH ×2 (11:30→17:14)
[2024-09-24] MEDS ORDERED: Sugammadex Sodium 200 MG/2 ML VIAL IV ONE (11:42)
[2024-09-24] MEDS ORDERED: Ketorolac 30 MG/ML SDV ONE (11:42)
[2024-09-24] MEDS ORDERED: Dexamethasone 4 MG/ML 5 ML MDV ONE (11:42)
[2024-09-24] MEDS ORDERED: Ondansetron 4 MG/2 ML SDV ONE (11:42)
[2024-09-24] MEDS ORDERED: Lidocaine 2% 5 ML SDV ONE (11:42)
[2024-09-24] MEDS ORDERED: Propofol 200 MG/20 ML SDV ONE ×2 (11:43→11:48)
[2024-09-24] MEDS ORDERED: fentaNYL 100 MCG/2 ML SDV ONE ×2 (11:43→14:28)
[2024-09-24] MEDS ORDERED: Rocuronium 50 MG/5 ML Vial ONE ×2 (11:47→14:30)
[2024-09-24] MEDS ORDERED: Lactated Ringers 1,000 ML ONE (12:28)
[2024-09-24] MEDS ORDERED: ceFAZolin 2 GM Vial ONE (12:29)
[2024-09-24] MEDS ORDERED: Phenylephrine 1% 10 MG/ML SDV ONE (12:33)
[2024-09-24] MEDS ORDERED: Ketamine 200 MG/20 ML MDV ONE (12:39)
[2024-09-24] MEDS: EPINEPHrine 1 MG/ML SDV ONE (13:40)
[2024-09-24] MEDS: Bupivacaine 0.5% 30 ML SDV ONE (13:40)
[2024-09-24] MEDS ORDERED: Lactated Ringers 1,000 ML IV ONE (15:15)
[2024-09-24] MEDS: Ondansetron 4 MG/2 ML SDV IVPUSH PRN (16:30)
[2024-09-24] MEDS: fentaNYL 100 MCG/2 ML SDV IVPUSH PRN (16:35)
[2024-09-24] MEDS ORDERED: Albuterol/Ipratropium 3.0-0.5 MG/3 ML Neb Soln INH PRN (16:41)
[2024-09-24] MEDS ORDERED: Benzocaine/Cetylpyridinium/Menthol Lozenge MUCMEM PRN (16:49)
[2024-09-24] MEDS: HYDROmorphone 0.5 MG/0.5 ML Syringe IVPUSH PRN ×2 (17:04→19:43)
[2024-09-24] MEDS: Simethicone 80 MG Tab.Chew PO PRN (17:13)
[2024-09-24] MEDS: Ketorolac 30 MG/ML SDV IVPUSH ONE (17:20)
[2024-09-24] MEDS: Sodium Chloride 0.9% 10 ML Syringe FLUSH SCH (18:35)
[2024-09-24] MEDS: oxyCODONE 5 MG Tab PO PRN (18:55)
[2024-09-24] MEDS ORDERED: HYDROmorphone 0.5 MG/0.5 ML Syringe IVPUSH PRN (19:39)
[2024-09-24] MEDS: Ondansetron 4 MG Tab.DIS PO PRN (19:49)
[2024-09-24] MEDS: Acetaminophen 325 MG Tab PO PRN (20:28)
[2024-09-24] MEDS: DULoxetine 30 MG Cap PO SCH (20:28)
[2024-09-24] MEDS: HYDROmorphone 0.5 MG/0.5 ML Syringe IVPUSH ONE (21:07)
[2024-09-24] MEDS ORDERED: Ketorolac 15 MG/ML SDV IVPUSH SCH (22:00)
[2024-09-24] MEDS: diphenhydrAMINE 50 MG/ML SDV IVPUSH PRN (22:15)
[2024-09-24] MEDS: Ketorolac 15 MG/ML SDV IVPUSH SCH (23:30)
[2024-09-25] MEDS: HYDROmorphone 1 MG/ML Syringe IVPUSH PRN (02:23)
[2024-09-25 04:42] LABS: BASOPHILS ABSOLUTE AUTO 0.1 K/mm3 (0.0-0.2); BASOPHILS PERCENT AUTO 0.4 % (0.0-1.0); EOSINOPHILS PERCENT AUTO 0.1 % (0.0-6.0); HEMATOCRIT 45.6 % (37.0-47.0); IMMATURE GRAN ABSOLUTE AUTO 0.06 K/mm3 (0.00-0.05); IMMATURE GRAN PERCENT AUTO 0.4 % (0.0-0.4); LYMPHOCYTES ABSOLUTE AUTO 0.4 K/mm3 (1.0-4.8); LYMPHOCYTES PERCENT AUTO 2.5 % (24.0-44.0); MEAN CORPUSCULAR HEMOGLOBIN 30.3 pg (28.0-32.0); MEAN CORPUSCULAR HGB CONC 32.9 g/dl (32.0-36.0); MEAN CORPUSCULAR VOLUME 92.1 fl (83.0-99.0); MEAN PLATELET VOLUME 9.8 fl (9.4-12.3); MONOCYTES ABSOLUTE AUTO 0.7 K/mm3 (0.0-0.8); NEUTROPHILS ABSOLUTE AUTO 14.9 K/mm3 (1.8-7.7); NEUTROPHILS PERCENT AUTO 92.6 % (41.0-71.0); PLATELET COUNT,PLT 282 K/mm3 (150-400); RED BLOOD CELL COUNT 4.95 M/mm3 (4.10-5.30); WHITE BLOOD CELL COUNT,WBC 16.13 K/mm3 (3.9-11.3)
[2024-09-25 04:56] LABS: ANION GAP 10.9 (5-15); CALCIUM 8.9 mg/dL (8.5-10.1); CREATININE 0.8 mg/dL (0.55-1.02); EST CRCL DRUG DOSING (CG) 61.35 mL/min; POTASSIUM,K 3.9 mEq/L (3.5-5.1)
[2024-09-25] MEDS: Levothyroxine 75 MCG Tab PO SCH (05:23)
[2024-09-25 05:55] LABS: SLIDE REVIEW ABNORMAL SMEAR
[2024-09-25] MEDS: NIFEdipine 30 MG Tab.ER PO SCH (08:17)
[2024-09-25] MEDS: Enoxaparin 40 MG/0.4 ML Syringe SUBCUT SCH (08:18)
[2024-09-25] MEDS ORDERED: DULoxetine 30 MG Cap PO SCH (09:00)
[2024-09-25] MEDS ORDERED: Ketorolac 15 MG/ML SDV IVPUSH SCH ×2 (19:35)
[2024-09-25] MEDS: Lactated Ringers 1,000 ML IV SCH (22:05)
[2024-09-26 04:35] LABS: HEMATOCRIT 40.5 % (37.0-47.0); HEMOGLOBIN 13.3 gm/dl (12.0-16.0); MEAN CORPUSCULAR HEMOGLOBIN 30.3 pg (28.0-32.0); MEAN CORPUSCULAR HGB CONC 32.8 g/dl (32.0-36.0); MEAN CORPUSCULAR VOLUME 92.3 fl (83.0-99.0); MEAN PLATELET VOLUME 9.9 fl (9.4-12.3); PLATELET COUNT,PLT 268 K/mm3 (150-400); RED BLOOD CELL COUNT 4.39 M/mm3 (4.10-5.30); WHITE BLOOD CELL COUNT,WBC 11.56 K/mm3 (3.9-11.3)
[2024-09-26 05:32] LABS: ANION GAP 10.5 (5-15); CALCIUM 8.7 mg/dL (8.5-10.1); EST CRCL DRUG DOSING (CG) 49.08 mL/min; POTASSIUM,K 3.5 mEq/L (3.5-5.1)
[2024-09-26 15:15] VITALS: BP 118/70; PULSE 108
== END 2024-09-26 15:30 | disposition home or self-care (01) | DRG 328 ==
LOC: JD.MS 10:58
PROVIDERS: ADMIT Surgery; ATTEND Surgery
PROC: 0DV44ZZ Restriction of Esophagogastric Junction, Percutaneous Endoscopic Approach (ICD-10-PCS; 2024-09-24)
PROC: 0DH63UZ Insertion of Feeding Device into Stomach, Percutaneous Approach (ICD-10-PCS; 2024-09-24)
PROC: 0BUT4JZ Supplement Diaphragm with Synthetic Substitute, Percutaneous Endoscopic Approach (ICD-10-PCS; principal; 2024-09-24 13:15)
PROC: 0DQ64ZZ Repair Stomach, Percutaneous Endoscopic Approach (ICD-10-PCS; 2024-09-24 13:15)
DX: K44.9 Diaphragmatic hernia without obstruction or gangrene (principal); F41.9 Anxiety disorder, unspecified; M19.90 Unspecified osteoarthritis, unspecified site; F32.A Depression, unspecified; H91.90 Unspecified hearing loss, unspecified ear; I10 Essential (primary) hypertension; E03.9 Hypothyroidism, unspecified; G47.33 Obstructive sleep apnea (adult) (pediatric); M06.9 Rheumatoid arthritis, unspecified; K21.9 Gastro-esophageal reflux disease without esophagitis; Z96.652 Presence of left artificial knee joint; Z87.01 Personal history of pneumonia (recurrent); Z88.2 Allergy status to sulfonamides; Z79.899 Other long term (current) drug therapy; Z90.722 Acquired absence of ovaries, bilateral; Z98.890 Other specified postprocedural states; Z90.710 Acquired absence of both cervix and uterus; R09.02 Hypoxemia
CPT/HCPCS: 36415; 80048; 85025; 85027; 94760; 94761; A9270-GY; C1781; J0171; J0665; J0690; J1100; J1171; J1200; J1650; J1885; J2003; J2371; J2405; J2704; J3010; J3490; J7120